=== PATIENT | female | born 1965 | race Caucasian/White ===

== ENCOUNTER 2017-11-23 11:56 | Emergency (ER) | payer BC, OTHER ==
[2017-11-23] MEDS ORDERED: Tenofovir/Emtricitab 200/300 * TAB PO ONE (12:21)
[2017-11-23] MEDS ORDERED: Raltegravir* 400 MG TAB PO ONE (12:22)
[2017-11-23 12:27] VITALS: BP 133/80
--- NOTE | 2017-11-23 12:33 | UC ---
UC General HPI - HPI Summary HPI Summary: While working here she was aspirating an abcess and puss splashed into the right eye. She immediately washed but is worried about communicable disease transfer. This has been discussed with LUIS Toth. We are following PEP protocol. Pt aware this is low risk but would like to proceed with first dose PEP. Pt agreed to be tested. - History of Current Complaint Stated Complaint: BODY FLUID EXPOSURE([employer]) Time Seen by Provider: 11/23/17 12:19 Hx Obtained From: Patient Onset/Duration: Sudden Onset Onset Severity: Mild Current Severity: None Pain Intensity: 0 Associated Signs & Symptoms: Negative: Confusion, Cough, Chest Pain, Decreased Responsiveness, Dizziness, Diarrhea, Dysuria, Decreased Oral Intake, Diaphoresis , Edema, Fever, Headache, Hematemesis, Hemoptysis, In-Dwelling Medication Device , Melena, Nausea, Palpitations, Recent Medication Changes, Syncope, SOB, Trauma , Vomiting - Allergy/Home Medications Allergies/Adverse Reactions: Allergies Allergy/AdvReac Type Severity Reaction Status Date / Time No Known Allergies Allergy Verified 11/23/17 12:20 PMH/Surg Hx/FS Hx/Imm Hx 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 - Surgical History Surgical History: None - Family History Known Family History: Positive: Other - no related family history. - Social History Occupation: Employed Full-time Alcohol Use: Rare Substance Use Type: None Smoking Status (MU): Never Smoked Tobacco Review of Systems All Other Systems Reviewed And Are Negative: Yes Physical Exam Triage Information Reviewed: Yes Appearance: Well-Appearing, No Pain Distress, Well-Nourished Vital Signs: Initial Vital Signs Temp 99.4 F 11/23/17 12:20 Pulse 72 11/23/17 12:20 Resp 18 11/23/17 12:20 BP 133/80 11/23/17 12:20 Pulse Ox 97 11/23/17 12:20 Vital Signs Reviewed: Yes Eyes: Positive: Conjunctiva Clear ENT: Positive: Normal ENT inspection Neck: Positive: Supple, Nontender, No Lymphadenopathy Respiratory: Positive: No respiratory distress, No accessory muscle use, Respiratory distress Cardiovascular: Positive: Brisk Capillary Refill Abdomen Description: Negative: Distended Musculoskeletal: Positive: Strength Intact, ROM Intact, No Edema Neurological: Positive: Alert, Muscle Tone Normal. Negative: Fatigued Psychological: Positive: Age Appropriate Behavior Skin: Negative: rashes Course/Dx - Course Course Of Treatment: We discussed options in detail and Ale is aware that this is a very low risk scenario. She would like to proceed with PEP. Pt is getting tested along with source patient. - Differential Dx - Multi-Symptom Provider Diagnoses: blood expsure to the right eye. PEP started Discharge - Sign-Out/Discharge Documenting (check all that apply): Discharge/Admit/Transfer - Discharge Plan Condition: Good Disposition: HOME Patient Education Materials: Postexposure Prophylaxis (ED) Referrals: Josee Isaac MD [Primary Care Provider] - - Billing Disposition and Condition Condition: GOOD Disposition: HOME
[2017-11-23] MEDS ORDERED: Erythromycin OPTH OINT* APPLIC OINT RIGHT EYE ONE (12:46)
[2017-11-23] MEDS ORDERED: Erythromycin TOPICAL GEL* 30 GM TUBE TOPICAL SCH (14:00)
[2017-11-23 14:19] LABS: ABS Basophils 0.1 10^3/ul (0-0.2); ABS Eosinophils 0.7 10^3/ul (0-0.6); ABS Monocytes 0.4 10^3/ul (0-0.8); ABS Neutrophils 3.7 10^3/ul (1.5-7.7); ABS Nucleated RBC 0 10^3/ul; Eosinophil % 10.7 % (0-6); Hematocrit 45 % (35-47); Hemoglobin 14.9 g/dl (12.0-16.0); Lymphocyte % 28.8 % (25-47); Mean Corpuscular HGB Conc 33 g/dl (31-36); Mean Corpuscular Hemoglobin 30 pg (27-31); Mean Corpuscular Volume 88 fL (80-97); Mean Platelet Volume 8.1 um3 (7.4-10.4); Nucleated Red Blood Cells % 0; Platelet Count 290 10^3/ul (150-450); Red Blood Count 5.06 10^6/ul (4.0-5.4); Red Cell Distribution Width 14 % (10.5-15)
[2017-11-23 14:52] LABS: EGFR Non-African American 61.5 (>60)
--- NOTE | 2017-11-24 08:08 | UC ---
- Progress Note Progress Note: Not hep B immune should discuss with her PDM re immunization Discharge - Sign-Out/Discharge Documenting (check all that apply): Post-Discharge Follow Up - Discharge Plan Condition: Good Disposition: HOME Patient Education Materials: Postexposure Prophylaxis (ED) Referrals: Josee Isaac MD [Primary Care Provider] - - Billing Disposition and Condition Condition: GOOD Disposition: HOME
== END 2017-11-23 12:55 | disposition home or self-care (01) ==
LOC: UCCORT 11:56
DX: Z77.21 Contact with and (suspected) exposure to potentially hazardous body fluids (principal)
CPT/HCPCS: 36415; 80053; 85025; 86703; 86706; 86803; 87340; 87389; 99212; A9270-GY; G0463; G0475